=== PATIENT | male | born 1980 | race Caucasian/White ===

== ENCOUNTER → 2025-03-22 11:05 | Outpatient (BNVA) | payer OTHER, SELFPAY | PROVIDERS: Family Provider Internal Medicine; PCP Family Medicine; Visit Provider Family Medicine | DX: Z00.00 Encounter for general adult medical examination without abnormal findings (principal); Z51.81 Encounter for therapeutic drug level monitoring; R00.2 Palpitations | CPT/HCPCS: 80053; 84439; 84443; 85025 ==